=== PATIENT | female | born 1990 | race Caucasian/White ===

== ENCOUNTER → 2023-11-29 13:43 | Outpatient (REF) | payer OTHER, SELFPAY | LOC: HWRAD 13:43 | PROVIDERS: ATTENDING PHYSICIAN Physician Assistant | DX: E71.310 Long chain/very long chain acyl CoA dehydrogenase deficiency (principal); R10.9 Unspecified abdominal pain; R30.0 Dysuria | CPT/HCPCS: 76770 ==

== ENCOUNTER → 2024-01-12 13:41 | Outpatient (REF) | payer OTHER, SELFPAY | LOC: RAD 13:41 | PROVIDERS: ATTENDING PHYSICIAN Physician Assistant | DX: R10.11 Right upper quadrant pain (principal); R10.30 Lower abdominal pain, unspecified; K21.9 Gastro-esophageal reflux disease without esophagitis; E71.310 Long chain/very long chain acyl CoA dehydrogenase deficiency | CPT/HCPCS: 74177; Q9967 ==

== ENCOUNTER 2024-11-25 02:29 | Emergency (ER) | payer OTHER, SELFPAY ==
[2024-11-25 02:37] VITALS: BP 134/83
--- NOTE | 2024-11-25 02:54 | ED.GENMED ---
History of Present Illness
General
Chief Complaint: Oral/Mouth Problem
Source: patient
Exam Limitations: none
Time Seen by Provider: 11/25/24 02:53
Nursing documentation reviewed up to this point in time: agreed with
History of Present Illness
History of Present Illness:
Patient with history of previous root canal and dental fracture, who has not been able to have any dental care due to lack of insurance, presents to ED secondary to worsening right lower tooth pain over the past 3 days. Denies fever or chills.
Denies nausea or vomiting. Denies throat swelling. Denies trauma.
Past History
Past History
ED Past Medical History: None
ED Past Surgical History: None
Social History
Tobacco: Non-smoker
Alcohol: Occasional
Drug: None
Review of Systems
Review of Systems
Allergies reviewed?: Yes
All Other Systems: ROS reviewed and negative except as documented in HPI and ROS
Constitutional: Reports no symptoms; Denies fever
EENT: Reports other (Toothache)
ABD/GI: Reports no symptoms
Skin: Reports no symptoms
Neurological: Reports no symptoms
Phy Exam
Physical Exam
Physical Exam:
Physical Exam
General: mild painful distress, not acutely ill. afebrile
Head: nc/at. eomi
Neck: supple. no meningeal signs. normal posterior pharynx. dental fx with pulp exposure/tenderness noted over ##29 tooth, without gingival swelling/drainage.
Abdomen: normal bowel sounds. not tender.
Neuro: alert and oriented x 3. no focal neurological deficits
Skin: no rash
Psychiatric: well kept. interactive and cooperative
Course
Orders/Labs/Results
Orders:
Orders
11/25/24 02:59
Penicillin V Potassium [Pen Vk] 500 mg PO NOW STA
11/25/24 03:20
Acetaminophen [Tylenol] 1,000 mg .ROUTE .STK-MED ONE
11/25/24 03:21
Acetaminophen [Tylenol] 1,000 mg PO NOW STA
Vital Signs
Initial and Last Documented VS:
Initial Vital Signs
Temp Pulse Resp BP Pulse Ox
98 F 72 20 134/83 100
11/25/24 02:37 11/25/24 02:37 11/25/24 02:37 11/25/24 02:37 11/25/24 02:37
Last Documented Vital Signs
Temp Pulse Resp BP Pulse Ox
98 F 72 20 134/83 98
11/25/24 02:37 11/25/24 02:37 11/25/24 02:37 11/25/24 02:37 11/25/24 03:45
MDM/Problems Addressed
MDM/Problems Addressed:
Patient afebrile and without any evidence of dental abscess nor open drainage. Patient with likely ongoing pain secondary to dental fracture with pulp exposure. As such, patient restarted on short course of Pen-Vee K along with pain medication,
with recommendation to follow-up with dentist as an outpatient. Patient expresses understanding at time of discharge.
*Critical Care Note
Total Time (30-74mins, 75-104mins- exclusive of procedures): Not Applicable
ED Attending Note
-
Portions of this chart may have been created with voice recognition software.� Occasional wrong word or��sound alike� substitutions may have occurred due to the inherent limitations of voice recognition software.
Discharge Plan
Departure
Patient Disposition: Home (Routine Discharge)
Date of Disposition: 11/25/24
Time of Disposition: 02:54
Patient with high blood pressure during this ER visit?: Yes
Condition: Good
Discharge Problem:
Tooth ache
Instructions: Dental Pain (DC)
Prescriptions:
New
penicillin V potassium 500 mg tablet
500 mg PO TID Qty: 20 0RF
oxycodone-acetaminophen [Percocet] 5-325 mg Tablet
1 tab PO Q6HPRN PRN (Reason: pain) Qty: 8 0RF
No Action
Adderall XR
15 mg PO DAILY
escitalopram oxalate [Lexapro] 10 mg Tablet
10 mg PO DAILY
Activity Restrictions/Additional Instructions:
As discussed, please follow-up with your dentist for further evaluation and treatment. Your prescriptions have been sent electronically to [facility] pharmacy in [place].
Interventions
Interventions:
*Risk Screen - Suicide Last Done: 11/25/24 02:37
*General Assessment Last Done: 11/25/24 02:37
*Neglect/Abuse Screening Last Done: 11/25/24 02:37
*ED- Fall Risk Assessment Last Done: 11/25/24 02:37
*ED COVID-19 Vaccine History Last Done: 11/25/24 02:37
*Nursing Disposition Last Done: 11/25/24 03:45
Discharge Date and Time
Discharge Date/Time: 11/25/24 03:45
Print Language: BENGALI
[2024-11-25] MEDS: PEN VK 500 MG PO (03:18)
[2024-11-25] MEDS: TYLENOL 1000 MG PO (03:21)
== END 2024-11-25 03:45 | disposition home or self-care (01) ==
LOC: EMR 02:29
PROVIDERS: EMERGENCY PHYSICIAN Emergency Medicine; FAMILY PHYSICIAN Physician Assistant
DX: K08.89 Other specified disorders of teeth and supporting structures (principal); Z59.71 Insufficient health insurance coverage
CPT/HCPCS: 99283

== ENCOUNTER 2024-12-05 05:06 | Emergency (ER) | payer OTHER, SELFPAY ==
[2024-12-05 05:16] VITALS: BP 112/66
[2024-12-05 06:06] VITALS: BMI 28.3
--- NOTE | 2024-12-05 06:23 | ED.GENMED ---
History of Present Illness
General
Chief Complaint: Dental Problem
Time Seen by Provider: 12/05/24 06:08
History of Present Illness
History of Present Illness:
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 Was seen here 8 days ago and placed on penicillin,
states pain did not fully resolve but did improve. She is concerned for worsening pain indicating a potential recurrent infectious process. No fevers or chills, no jaw claudication, no neck pain or dysphagia
Past History
Past History
ED Past Medical History: None
ED Past Surgical History: None
Social History
Tobacco: Non-smoker
Alcohol: Occasional
Drug: None
Review of Systems
Review of Systems
Allergies reviewed?: Yes
All Other Systems: ROS reviewed and negative except as documented in HPI and ROS
Phy Exam
Physical Exam
Physical Exam:
GEN: Well appearing, NAD, WDWN
HEENT: Oral mucosa moist, no scleral icterus. Stable appearing chronic tooth fracture with exposed pulp, no gingival erythema, normal TMJ range of motion, no cervical adenopathy
Cardiac: Regular rate
Lung: No respiratory distress, no tachypnea
MSK: No gross deformity or injuries
Skin: Good color, no pallor or jaundice, no rashes
Neuro: AO x3, moves all extremities freely
Psych: Calm, cooperative
Sepsis
Sepsis Screening
Sepsis Assessment: Sepsis Ruled Out
Sepsis Screen
Sepsis Screen: Sepsis Ruled Out
Date: 12/05/24
Time: 07:34
Course
Vital Signs
Initial and Last Documented VS:
Initial Vital Signs
Temp Pulse Resp BP Pulse Ox
97.9 F 74 20 112/66 96
12/05/24 05:16 12/05/24 05:16 12/05/24 05:16 12/05/24 05:16 12/05/24 05:16
Last Documented Vital Signs
Temp Pulse Resp BP Pulse Ox
97.9 F 74 20 112/66 96
12/05/24 05:16 12/05/24 05:16 12/05/24 05:16 12/05/24 05:16 12/05/24 05:16
MDM/Problems Addressed
MDM/Problems Addressed:
No active signs of infectious process. Encourage close dental follow-up as definitive treatment is the only method to reduce her pain. Will start NSAIDs and provided with prescription for antibiotics should symptoms worsen however encouraged not
to start this given recent completion of penicillin
*Critical Care Note
Total Time (30-74mins, 75-104mins- exclusive of procedures): Not Applicable
ED Attending Note
-
Portions of this chart may have been created with voice recognition software.� Occasional wrong word or��sound alike� substitutions may have occurred due to the inherent limitations of voice recognition software.
Discharge Plan
Departure
Patient Disposition: Home (Routine Discharge)
Date of Disposition: 12/05/24
Time of Disposition: 06:25
Patient with high blood pressure during this ER visit?: No
Discharge Problem:
Pain due to dental caries
Instructions: Fractured Tooth (DC)
Prescriptions:
New
diclofenac sodium 75 mg tablet,delayed release (DR/EC)
75 mg PO BID Qty: 20 0RF
amoxicillin-pot clavulanate 875-125 mg tablet
1 tab PO BID 7 Days Qty: 14 0RF
No Action
Adderall XR
15 mg PO DAILY
escitalopram oxalate [Lexapro] 10 mg Tablet
10 mg PO DAILY
penicillin V potassium 500 mg tablet
500 mg PO TID Qty: 20 0RF
oxycodone-acetaminophen [Percocet] 5-325 mg Tablet
1 tab PO Q6HPRN PRN (Reason: pain) Qty: 8 0RF
Referrals:
Lissa Beltran PA [Family Provider] -
Activity Restrictions/Additional Instructions:
Reduced-Fee Dental Clinics
[facility]: [phone] call for appt. No walk ins
[facility]:
[facility]: [phone]
[facility] [phone]
[facility]: . No walk ins
[facility]: [phone]
[facility]: [phone]
[facility]: 1-
[facility]: [phone]
[facility]: [phone]
[facility], Free for uninsured
[facility]: [phone]
[facility] [phone] [place] [address]
[facility]:
[facility]:
Interventions
Interventions:
*Risk Screen - Suicide Last Done: 12/05/24 05:16
*General Assessment Last Done: 12/05/24 06:01
*Neglect/Abuse Screening Last Done: 12/05/24 05:16
*ED- Fall Risk Assessment Last Done: 12/05/24 06:01
*ED COVID-19 Vaccine History Last Done: 12/05/24 06:01
*Nursing Disposition Last Done: 12/05/24 07:02
Discharge Date and Time
Discharge Date/Time: 12/05/24 07:00
Print Language: MALAYSIAN
== END 2024-12-05 07:00 | disposition home or self-care (01) ==
LOC: EMR 05:06
PROVIDERS: EMERGENCY PHYSICIAN Emergency Medicine; FAMILY PHYSICIAN Physician Assistant
DX: K08.89 Other specified disorders of teeth and supporting structures (principal); K02.9 Dental caries, unspecified
CPT/HCPCS: 99283